=== PATIENT | male | born 1935 | race Caucasian/White ===

== ENCOUNTER → 2019-04-04 | Outpatient (CLI) | payer OTHER | LOC: HYPER 03-29 08:44 | DX: I87.312 Chronic venous hypertension (idiopathic) with ulcer of left lower extremity (principal); L97.822 Non-pressure chronic ulcer of other part of left lower leg with fat layer exposed; L97.811 Non-pressure chronic ulcer of other part of right lower leg limited to breakdown of skin; R60.0 Localized edema; Z87.891 Personal history of nicotine dependence ==

== ENCOUNTER → 2019-04-13 | Outpatient (CLI) | payer OTHER | LOC: HYPER 04-12 15:44 | DX: I87.312 Chronic venous hypertension (idiopathic) with ulcer of left lower extremity (principal); L97.822 Non-pressure chronic ulcer of other part of left lower leg with fat layer exposed; L97.811 Non-pressure chronic ulcer of other part of right lower leg limited to breakdown of skin; L03.116 Cellulitis of left lower limb; R60.0 Localized edema; Z87.891 Personal history of nicotine dependence ==

== ENCOUNTER → 2019-04-26 | Outpatient (CLI) | payer OTHER | LOC: HYPER 07:23 | DX: I87.312 Chronic venous hypertension (idiopathic) with ulcer of left lower extremity (principal); L97.822 Non-pressure chronic ulcer of other part of left lower leg with fat layer exposed; L97.811 Non-pressure chronic ulcer of other part of right lower leg limited to breakdown of skin; L03.116 Cellulitis of left lower limb; R60.0 Localized edema; Z87.891 Personal history of nicotine dependence ==

== ENCOUNTER 2019-05-02 09:45 | Inpatient (IN) | payer OTHER ==
[~2019-05-02] VITALS: Ht 180.3 cm; Wt 75.9 kg
[2019-05-02 10:30] VITALS: BP 117/75
[2019-05-02] MEDS ORDERED: FLONASE 0.05%50 MCG NASAL (11:11)
[2019-05-02] MEDS ORDERED: NORCO 10-325 T1 EACH PO (11:12)
[2019-05-02] MEDS ORDERED: VISTARIL 25 MG25 M1 PO (11:14)
[2019-05-02] MEDS ORDERED: HYDROXYZINE HCL25 M2 PO ×2 (11:15)
[2019-05-02] MEDS ORDERED: TYLENOL325 MG PO (11:17)
[2019-05-02] MEDS ORDERED: MUCINEX600 MG PO (11:18)
[2019-05-02] MEDS ORDERED: ALLEGRA ALLERG180 MG PO (11:23)
[2019-05-02] MEDS ORDERED: PRIMIDONE50 MG PO (11:27)
[2019-05-02] MEDS ORDERED: MIRALAX17 GM PO (11:28)
[2019-05-02] MEDS ORDERED: FLOMAX0.4 MG PO (11:28)
[2019-05-02 11:58] LABS: ABSOLUTE NEUTROPHILS 3.2 thou/uL (1.4-8.2); BASOPHILS 0.6 % (0.0-2.0); EOSINOPHILS 2.4 % (0.0-3.0); HEMATOCRIT 42.5 % (42.0-52.0); HEMOGLOBIN 13.8 gm/dL (14.0-18.0); LYMPHOCYTES 18.1 % (24.0-44.0); MCH 30.5 pg (26.0-34.0); MCHC 32.5 g/dL (28.0-37.0); MCV 93.9 fL (80.0-100.0); MONOCYTES 8.2 % (1.0-8.0); PLATELET COUNT 219 thou/uL (150-400); POLYS 70.7 % (36.0-66.0); RBC 4.53 mil/uL (4.50-6.00); RDW 14.5 % (10.5-14.5); WBC 4.5 thou/uL (4.0-11.0)
[2019-05-02] MEDS ORDERED: FLUTICASONE-SA1 EAC3 INH (12:06)
[2019-05-02 12:12] LABS: INR 1.1; PROTIME 11.2 Seconds (9.3-11.4)
[2019-05-02 12:17] LABS: ALBUMIN 3.3 g/dL (3.4-5.0); ANION GAP 6 mmol/L (7-16); BUN 38 mg/dL (7-18); CALCIUM 9.7 mg/dL (8.5-10.1); CHLORIDE 102 mmol/L (98-107); CHOLESTEROL 166 mg/dL (<200); CO2 32 mmol/L (21-32); CREATININE 1.7 mg/dL (0.7-1.3); GLUCOSE 151 mg/dL (74-106); HDL CHOLESTEROL 41 mg/dL (>40); LDL CHOLESTEROL 108 mg/dL (<100); MAGNESIUM 2.2 mg/dL (1.8-2.4); POTASSIUM 3.9 mmol/L (3.5-5.1); SGOT 16 U/L (15-37); SGPT 26 U/L (30-65); SODIUM 140 mmol/L (136-145); TOTAL BILIRUBIN 0.9 mg/dL (<0.1-1.0); TOTAL PROTEIN 7.1 g/dL (6.4-8.2); TRIGLYCERIDE 88 mg/dL (<150); VLDL 18 mg/dL (<40)
[2019-05-02 13:20] LABS: TSH 2.128 uIU/mL (0.358-3.740)
[2019-05-02 13:40] LABS: URINE BILIRUBIN NEGATIVE (Negative); URINE BLOOD NEGATIVE (Negative); URINE CLARITY CLEAR; URINE COLOR YELLOW; URINE GLUCOSE-RANDOM* NEGATIVE (Negative); URINE KETONES NEGATIVE (Negative); URINE LEUKOCYTES NEGATIVE (Negative); URINE NITRITE NEGATIVE (Negative); URINE PROTEIN (DIPSTICK) NEGATIVE (Negative); URINE UROBILINOGEN 0.2 E.U./dl (0.2-1.0)
[2019-05-02 15:13] VITALS: BP 144/82
[2019-05-02 19:10] VITALS: BP 150/66
--- NOTE | 2019-05-02 19:49 | NUR ---
Direct admit on the floor due to L ankle cellulitis. Dr Washburn informed re: admission, called me back and said that pt is under Dr. England- Dr England informed and said she'll see pt. Medication rec done and sent to Dr England for review, with meds brought in from home, placed on pharmacy sealed bag, enlisted all meds on the bag and sent to pharmacy for safekeeping- pt aware and claim form attached on the chart. A+Ox4. On room air. No nausea, no vomiting and no abdominal pain noted. L ankle pain 08/19, informed pt that pain meds are available if he wants, he said that he does not want it as of the moment but will let nurse know. Started IV on his L FA, NS 75cc/hr started. Pt went down via wheelchair for MRI of his L Leg, checklist sent. Pt brought back to [place], transferred to bed safely. Wound photo taken and wound care done, consult to Dr Ceja called in, left a voicemail. Pt seen by Dr England, diet ordered for the pt; informed him as well. Admission care and assessment done, forms filled up. With consult to Dr De La Cruz- called in, will possibly see pt later. Assisted in ADLs. Seen by OT today- evaluation done. Edema noted on his L Leg- kept elevated. With orders to have med records from [facility](MRI) faxed over, asked senior staff and 4E US how to do request since I have not it done before, as per 4E US, to have pt sign consent for Medical record request and fax to our Medical records, form signed by pt and faxed to Medical Records as instructed; a/w reply. Vital signs stable. No complaints of pain made the whole shift. With orders for US this PM- night staff informed. To continue monitoring.
[2019-05-03 05:49] LABS: HEMATOCRIT 40.4 % (42.0-52.0); HEMOGLOBIN 13.2 gm/dL (14.0-18.0); MCH 30.3 pg (26.0-34.0); MCHC 32.7 g/dL (28.0-37.0); MCV 92.7 fL (80.0-100.0); RBC 4.36 mil/uL (4.50-6.00); RDW 14.4 % (10.5-14.5); WBC 3.9 thou/uL (4.0-11.0)
[2019-05-03 06:11] LABS: CALCIUM 9.1 mg/dL (8.5-10.1); CREATININE 1.5 mg/dL (0.7-1.3); MAGNESIUM 1.9 mg/dL (1.8-2.4)
[2019-05-03 07:32] VITALS: BP 144/86
--- NOTE | 2019-05-03 08:45 | NUR ---
progress pt a/o x4. lungs clear, abdomen soft with active bs reported he felt constipated so miralax given. voiding qs. up with sba gait steady. right groin drsg c/d/i. no hematoma noted neuro checks to rle wnl. continue poc.
--- NOTE | 2019-05-03 09:00 | HC ---
[facility] [place] [address] CONSULTATION Name: ALFRED CEE Room #: 435-P [facility] IN M.R.#: [id number] Admission: 05/02/19 Attend Phys: Luis Fernando Washburn MD Discharge: Date of : 35 Report #: [id number] THIS REPORT FOR: //name// CC: Deng Barillas [facility] DATE OF SERVICE: 05/02/2019 INFECTIOUS DISEASE CONSULTATION REASON FOR CONSULTATION: Evaluate left ankle soft tissue infection. HISTORY OF PRESENT ILLNESS: The patient is an 83-year-old, several years ago noticed that he had an insect bite to his left ankle. This developed a wound and following that, he noticed marked edema to the left lower leg, mostly below the knee. He has been dealing with wound care and antibiotic therapy periodically. 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 He has been unable to do much due to this persistent wound. He was seen several months ago at a [facility] where he underwent venous ablation procedure, possibly some stenting, which he noticed improved the swelling, although he continues to have a large wound to the medial lower leg, ankle region. He has had no fever, chills or sweats. He received a course of amoxicillin 2 weeks ago. This did not have much effect on the wound. He has a small to moderate amount of drainage. Overall, he feels well except for this area with minimal pain. He has had no surgical intervention. He is a nonsmoker and has no history of diabetes. ALLERGIES: None known. MEDICATIONS: As noted on his MAR including Flonase, [place], hydroxyzine, Mucinex, primidone, tamsulosin, MiraLax, fluticasone and salmeterol inhaler, given a dose of vancomycin today. PAST MEDICAL HISTORY: Tremor, chronic kidney disease. FAMILY HISTORY: Noncontributory. SOCIAL HISTORY: Past smoker, no significant alcohol intake, no HIV risks. REVIEW OF SYSTEMS: Denies any cardiopulmonary, GI, , joint, neuro, heme, lymph, allergic, psychiatric issues. PHYSICAL EXAMINATION: VITAL SIGNS: Afebrile and hemodynamically stable. GENERAL: He is alert and cooperative. SKIN: With very large necrotic wound to his left medial lower leg and ankle. [address] [address] CONSULTATION Name: ALFRED CEE Room #: 435-P [facility] IN M.R.#: [id number] Admission: 05/02/19 Attend Phys: Luis Fernando Washburn MD Discharge: Date of : 35 Report #: [id number] There was a sinus tract present with tunneling. There was minimal drainage. Mild surrounding erythema. No lymphangitis identified. Other skin examination was unremarkable. He had 2+ edema in the lower leg, mostly around the ankle and foot. No palpable adenopathy. HEENT: Eyes, without scleral icterus. Mouth without mucositis. NECK: Supple, with no thyromegaly or mass. LUNGS: Clear. HEART: Regular, without murmur, gallop, or rub. ABDOMEN: Soft and nontender with no hepatosplenomegaly or mass. EXTREMITIES: Unremarkable. Pulses were palpable in the foot. NEUROLOGIC: Cranial nerves intact. Strength in his upper and lower extremities normal. Sensation intact. MOOD: Normal. BACK: Nontender. LABORATORY STUDIES: Hemoglobin 13.8, WBC 4.5, platelet count 219,000. Differential unremarkable. Sodium 140, potassium 3.9, bicarbonate 32, creatinine 1.7. Liver function test normal. Urinalysis unremarkable. MRI scan of the ankle, no evidence of osteomyelitis, extensive subcutaneous fat signal consistent with cellulitis, lymphangitis. Outside cultures on 04/26/2019 of the ankle wound revealed Enterococcus faecalis, PENICILLIN AND VANCOMYCIN sensitive as well as pansensitive, Leclercia adecarboxylata organism was sensitive to ampicillin, cefuroxime, ciprofloxacin, meropenem, gentamicin, tetracycline, and tobramycin. IMPRESSION: An 83-year-old with venous stasis disease, previous injury to his left ankle with extensive soft tissue defect. I am unclear as to the depth of this wound. I have discussed in detail with wound care service. Surgical intervention is going to be undertaken. Plan was to see how extensive the wound is and then decide if Plastic Surgery will be necessary. I am also concerned about the ability of him to heal a wound of this nature. Screening laboratory studies, nonfasting blood glucose is 151. He has chronic kidney disease with a creatinine of 1.7. RECOMMENDATIONS: We will treat the current organisms with Unasyn at this point while we await further culture data from Surgery. Would check hemoglobin A1c along with arterial vascular studies to ensure we have adequate blood flow. The patient is to be consulted by Orthopedic Surgery to begin a debridement. <ELECTRONICALLY SIGNED> By: Wolf De La Cruz MD 05/03/19 09 1807 022 Wolf De La Cruz MD /nt
--- NOTE | 2019-05-03 10:08 | NUR ---
Received awake on bed. Due medications given as prescribed. A+Ox4. On room air. With NS at 50cc/hr, infusing well at L FA. With dressing at L Leg- C/D/I. Seen by PT today, able to walk around the hallway, PT evaluation done, pt on stand by assist. Vital signs stable. With consult to Dr Montero- US informed to call in consult. No complaints of pain. Able to tolerated meals- no nausea, no vomiting or abdominal pain noted; able to swallow meds w/o difficulty.
[2019-05-03 13:33] VITALS: BP 140/78
--- NOTE | 2019-05-03 15:37 | NUR ---
PT ADMITTED RELATED TO L FOOT CELLULITIS. CM REVIEWED CHART AND SPOKE WITH CARE TEAM. CM MET WITH PT AT BEDSIDE THIS DAY. PT IS A&O X4. CM ROLE INTRODUCED. PT INDICATED HE LIVES IN A HOUSE WITH HIS SPOUSE WITH 6 STEPS TO ENTER AND 13 STEPS INSIDE. PT INDICATED NO DME OR HH HX. PT INIDCATED HE HAD BEEN INDEPENDENET WITH GAIT AND ADLS RISK INTERN. PT INDICATED THAT HE PLANS TO HAVE DR. FRANKS BE HIS PCP UPON DC. PT INIDCATED HE HAD BEEN ON SERVICE WITH [facility] PRIOR TO ADMISSION AND WOULD LIKE TO USE THEM UPON DISHCARGE. CM TO FOLLOW INDICATED WITH DC PLANNING.
--- NOTE | 2019-05-03 16:54 | HC ---
[facility] [place] [address] CONSULTATION Name: ALFRED HURLEY Room #: 435-P [facility] IN M.R.#: [id number] Admission: 05/02/19 Attend Phys: Luis Fernando Washburn MD Discharge: Date of : 35 Report #: [id number] THIS REPORT FOR: //name// CC: Deng Washburn [facility] DATE OF SERVICE: 05/02/2019 CHIEF COMPLAINT: Ulceration to the left medial ankle. HISTORY OF PRESENT ILLNESS: This is an 83-year-old male patient who was admitted to the hospital. He reportedly had some sort of vascular procedure, possibly a venous ablation type procedure may be 6 months ago and then developed swelling involving his lower leg. The area is ulcerated. It is not healed and it has been somewhat painful. It has become somewhat erythematous and infected looking and he is admitted for further evaluation and treatment. The patient denies a lot of pain associated with this, but states he is concerned it that has been nonhealing. His timeline for the development of the ulceration and swelling and the exact details are a little bit fuzzy right now and I do not have any records to review or have any sort of vascular type procedures. The patient; however, is pleasant and cooperative. PAST MEDICAL HISTORY: Positive for history of benign essential tremor, chronic kidney disease stage 3. MEDICATIONS: Flonase nasal spray, [place], hydroxyzine, Tylenol, guaifenesin, primidone, tamsulosin, polyethylene glycol. ALLERGIES: No known drug allergies. SOCIAL HISTORY: The patient denies alcohol use. Previous smoker, 2-3 packs per day, quit less than a year ago. FAMILY HISTORY: Noncontributory. REVIEW OF SYSTEMS: CONSTITUTIONAL: The patient denies fever, chills or weight loss. NEUROLOGICAL: The patient denies focal weakness, numbness or tingling. EYES: The patient denies visual changes, redness, or drainage. ENT: The patient denies earache, nasal drainage or sore throat. CARDIOVASCULAR: The patient denies chest pain, palpitations or diaphoresis. PULMONARY: The patient denies cough or shortness of breath. GASTROINTESTINAL: Abdominal pain. ORTHOPEDIC: The patient denies pain, swelling, redness and ulceration of the left lower extremity. [address] [address] CONSULTATION Name: ALFRED HURLEY Room #: 435-P [facility] IN .R.#: [id number] Admission: 05/02/19 Attend Phys: Luis Fernando Washburn MD Discharge: Date of : 35 Report #: [id number] Other systems in a 14-point review of systems are negative. PHYSICAL EXAMINATION: VITAL SIGNS: At this time include temperature 36.6, pulse 79, respiratory rate 18, blood pressure 144/82. GENERAL: This is an elderly male patient who appears to be in minimal distress. HEENT: Head normocephalic. Nose and throat are clear. NECK: Supple. LUNGS: Clear. HEART: Regular rate and rhythm. ABDOMEN: Bowel sounds present. EXTREMITIES: Lower extremities demonstrate 2+ edema bilaterally. There is significant swelling involving the left ankle. There is a large area of necrosis/ulcerations involving the medial ankle and lower leg. The area seems spongy or rubbery to palpation, although not specifically fluctuant. I have attempted to peel back some of the necrotic tissue without release of any type fluid and probing with the blunt end of a cotton-tipped applicator did not result in any sort of drainage or fluid to be expressed from beneath. LABORATORY DATA: Include white blood cell count 4.5, hemoglobin 13.8. INR is 1.1. Sodium 140, potassium 3.9, chloride 102, CO2 32, BUN 38, creatinine 1.7, glucose 151. Albumin is 3.3. MRI of the ankle demonstrates no evidence for osteomyelitis. Extensive abnormal signal in the subcutaneous fat of the lower leg and ankle. This is greatest medially but present circumferentially. Differential diagnosis includes chronic cellulitis or lymphangitis. CLINICAL IMPRESSION: 1. Soft tissue necrosis and ulceration of the left medial ankle. 2. Possible venous insufficiency with possible history of venous ablation procedure performed sometime in the last 6-12 months. 3. Chronic kidney disease stage 3. 4. Benign essential tremor. 5. Possible old hematoma involving the left medial leg, possibly related to complications of venous ablation surgery/procedure. RECOMMENDATIONS: At this point in time, I think the patient will need extensive debridement. This is likely larger area than what we could be safely or appropriately done at the bedside. We will consult orthopedics for debridement of the ankle and lower leg. Additional decision making would be forthcoming following debridement, obviously deep cultures would be appropriate. Infectious Disease is currently being consulted with which I agree. We will check arterial Dopplers to make sure that he has maximal vascular potential for healing. He may require tissue substitute or possibly a wound VAC depending on what we find [facility] [address] [place] [address] CONSULTATION Name: ALFRED HURLEY Room #: 435-P [facility] IN M.R.#: [id number] Admission: 05/02/19 Attend Phys: Luis Fernando Washburn MD Discharge: Date of : 35 Report #: [id number] once debridement was undertaken. I appreciate being asked to see Mr. Hurley in consultation. <ELECTRONICALLY SIGNED> By: Robert Kaiser MD 05/03/19 1654 [id number] Robert Kaiser MD /nt
[2019-05-03 19:30] VITALS: BP 165/87
[2019-05-03 20:30] VITALS: BP 134/70
[2019-05-03 21:30] VITALS: BP 119/71
[2019-05-03 23:31] VITALS: BP 123/69
--- NOTE | 2019-05-04 03:48 | NUR ---
Pt returned from surgery approx 1919 accompanied by volunteer/staff. A/OX4,VSS. C/o pain at 12/17, medicated with [place] with relief reported. Pt has a wound vac on LLE with continuous sunctioning at 125mmHG.Area warm to touch and slightly red. WBAT to LLE. Encouraged to elevate the extremity while lying down. IVF infusing w/o problems. Pt c/o constipation, prune juice given at HS no results yet. Resting quietly without distress noted,will continue to monitor pt.
[2019-05-04 06:25] LABS: HEMATOCRIT 36.4 % (42.0-52.0); MCH 30.4 pg (26.0-34.0); MCHC 32.8 g/dL (28.0-37.0); MCV 92.6 fL (80.0-100.0); RBC 3.94 mil/uL (4.50-6.00); RDW 14.2 % (10.5-14.5)
--- NOTE | 2019-05-04 06:33 | O ---
[facility] [place] [address] OPERATIVE REPORT Name: ALFRED CEE Room #: 435-P ADM IN M.R.#: [id number] Admission: 05/02/19 Attend Phys: Luis Fernando Washburn MD Discharge: Date of : 35 Report #: [id number] THIS REPORT FOR: //name// CC: Deng Washburn [facility] DATE OF SERVICE: 05/03/2019 SERVICE: Orthopedics. FACILITY: [facility]. SURGEON: Samuel Pride MD FELTING MACHINE OPERATOR: Rosanna Barron NP. PREOPERATIVE DIAGNOSIS: Left ankle wound. POSTOPERATIVE DIAGNOSIS: Left ankle wound. PROCEDURES: 1. Incision and debridement down to muscle layer of left ankle wound with final wound size of 16 cm x 10 cm x 2 cm in depth. 2. Application of negative pressure wound VAC therapy or surface area 16 x 10 x 2 cm. COMPLICATIONS: None. DRAINS: Wound VAC. SPECIMEN: Tissue sent for culture. FINDINGS: 1. No purulence. 2. Excision of tissue down to apparently viable bleeding tissue. 3. Successful wound VAC application. HISTORY: The patient is an 83-year-old gentleman with a longstanding history of left medial ankle wound. He presented when he was having a foul smelling wound and an eschar over the top. He had an MRI, which showed no signs of osteomyelitis. He had recommendation by wound care for surgical debridement and Orthopedics was consulted. Risks, benefits, alternatives, and indication for surgery was discussed with him in detail. Risks include but not limited to pain, bleeding, infection, persistence of the wound, need for further surgery, failure of surgical treatment of this wound as well as complications related to [facility] [address] [place] [address] OPERATIVE REPORT Name: ALFRED CEE Room #: 435-P ADM IN .R.#: [id number] Admission: 05/02/19 Attend Phys: Luis Fernando Washburn MD Discharge: Date of : 35 Report #: [id number] anesthesia such as stroke, heart attack, pulmonary complications, thromboembolic disease and . Despite these risks, he wished to proceed. PROCEDURE IN DETAIL: After the left lower extremity was correctly identified in preoperative holding area as the operative extremity, the patient was taken to the operating room where general anesthesia was induced without complication. He was padded appropriately. Prophylactic antibiotics were already being initiated as a treatment dose during the hospitalization. No tourniquet was utilized. Left leg was prepped and draped in standard sterile fashion. Time-out procedure was performed. The eschar was incised around the perimeter and then the edge of the nonviable tissue was excised sharply. The curvilinear contouring around the perimeter of the wound was excised as well through sharper edges. We resected tissue until bleeding was achieved around the perimeter and then continued to excised tissue working superficial to deep. The ultrasonic auxiliary equipment tender debrider was used as well to resect the necrotic tissue within the wound bed. There was no bone or tendon exposed. The muscle could be visualized and the debridement approximately came down to the muscle itself. The saphenous vein was enlarged and insert and serpiginous and portions of it were thrombosed, but portion of it were viable and it was tied off with a silk tie. After the debridement was completed with the ultrasonic device , used a rongeur to resect residual tissue as well. Again, bleeding was seen, wound was once again irrigated and then the wound VAC was placed after final measurements of the wound were completed. The initial size of the wound was 14 cm x 8 cm and was of no depth. At the completion of the debridement, the wound measured 16 cm x 10 cm x 2 cm in depth. A successful negative pressure was achieved with the wound VAC after application. We utilized a silver impregnated sponge. After the wound VAC was completed, the patient was awakened from anesthesia and taken to recovery room in stable condition. No complications and all counts were recorded. <ELECTRONICALLY SIGNED> By: Samuel Pride MD 05/04/19 0633 [id number] 41 Samuel Pride MD /nt
[2019-05-04 06:42] LABS: CALCIUM 8.7 mg/dL (8.5-10.1); CREATININE 1.4 mg/dL (0.7-1.3); MAGNESIUM 1.9 mg/dL (1.8-2.4); PHOSPHORUS 3.8 mg/dL (2.5-4.9); POTASSIUM 4.5 mmol/L (3.5-5.1)
[2019-05-04 09:00] VITALS: BP 142/78
--- NOTE | 2019-05-04 11:28 | NUR ---
Received awake on bed. Due medications given as prescribed, able to swallow meds w/o difficulty. A+O. On room air. With NS at 50cc/hr, infusing well at L FA. Complained of pain, due PRN pain medication given as prescribed. Pt S/P I&D on his left leg- wound vac in place and working, on 125mmhg, dressing C/D/I. A/W PT/OT. Able to use urinal to pass urine. Pt seen by PT this am, pt mentioned that he is non-weight bearing, verified on his notes, nothing mentioning that pt is non wt bearing, PT called Dr Pride to verify re: wt bearing status prior to therapy session, as per Dr Pride, pt can be on WBAT as long as he has boots on- to order 1 size larger- US informed to order; will see pt again this after and will try ambulating once boot is available. Vital signs stable.
--- NOTE | 2019-05-04 12:52 | NUR ---
PHYSICIAN INDICATED THAT HE WOULD LIKE REFERRAL SENT TO [facility] FOR POSSIBLE ADMISSION ONCE MEDICALL STABLE. CM TO FOLLOW INDICATED WITH DC PLANNING.
--- NOTE | 2019-05-04 13:05 | NUR ---
DISCHARGE PLANNING. ANTICIPATED DISCHARGE PLANNED FOR ONE TO TWO DAYS. POST ACUTE RECOMMENDED. PATIENT REFERRAL FAXED TO [facility] PER REQUEST. CALL PLACED TO SUAD SHARMA TO NOTIFY. FOLLOWING TO ASSIST.
[2019-05-04 16:04] VITALS: BP 111/51
[2019-05-04 19:20] VITALS: BP 132/65
--- NOTE | 2019-05-05 04:34 | NUR ---
Assumed pt care at 1900. A/OX4,VSS. Post I&D day 2, pt is WBAT to LLE. Boot delivered 05/04 was too tight will pass on to day shift;only supposed to walk if boot is on. Pivot/transfer to BSC. Extremity warm,swollen and slightly pink elevated on a pillow. C/o pain to LLE medicated per EMAR with relief reported. Wound vac in place and functional sunctioning at 125mmHG.Resting quietly at this time will continue to monitor pt. Fall precautions in place.
[2019-05-05 05:46] LABS: HEMATOCRIT 37.3 % (42.0-52.0); HEMOGLOBIN 12.2 gm/dL (14.0-18.0); MCH 30.6 pg (26.0-34.0); MCHC 32.8 g/dL (28.0-37.0); MCV 93.1 fL (80.0-100.0); RDW 14.2 % (10.5-14.5); WBC 3.7 thou/uL (4.0-11.0)
[2019-05-05 06:14] LABS: CALCIUM 8.8 mg/dL (8.5-10.1); CREATININE 1.4 mg/dL (0.7-1.3); POTASSIUM 3.9 mmol/L (3.5-5.1)
[2019-05-05 09:20] VITALS: BP 130/68
[2019-05-05 16:50] VITALS: BP 135/82
[2019-05-05 19:33] VITALS: BP 136/71
--- NOTE | 2019-05-05 19:43 | NUR ---
Assumed pt care this am, weight bearing as tolerated on his left leg. Wound vac in place and drained 50 cc. PT tried to work with the pt but was only able to transfer from bed to chair, boot could not be used due to tenderness and pain when boot was placed. Both legs were elevated for most of the day. Pain managed with medication. Fall precautions, in lpace, POC followed no signs or verbalizations of distress have been noted, vs have been stable.
--- NOTE | 2019-05-06 02:27 | NUR ---
ASSUMED CARE CYNDI 190. AXOX3. L ANKLE WOUND VAC INTACT. PERSISTENT PAIN TO L ANKLE. ELEVATED. NO S/S ACUTE DISTRESS NOTED OR REPORTED AT THIS TIME. WILL CONT TO MONITOR FOR ANY CHANGES IN CONDITION.
[2019-05-06 07:58] VITALS: BP 149/70; BP 89/54
[2019-05-06 10:36] LABS: HEMATOCRIT 41.5 % (42.0-52.0); HEMOGLOBIN 13.7 gm/dL (14.0-18.0); MCH 30.5 pg (26.0-34.0); MCV 92.5 fL (80.0-100.0); RBC 4.48 mil/uL (4.50-6.00); RDW 14.1 % (10.5-14.5); WBC 3.8 thou/uL (4.0-11.0)
[2019-05-06 10:48] LABS: CALCIUM 9.3 mg/dL (8.5-10.1); CREATININE 1.5 mg/dL (0.7-1.3); POTASSIUM 3.8 mmol/L (3.5-5.1)
--- NOTE | 2019-05-06 12:21 | NUR ---
WOUND CARE F/U; ROUNDING WITH DR PATTY FLORES. THE WOUND BED IS DRAMATICALLY BETTER. THERE IS REMAINING NON VIABLE TISSUE REMAINING IN THE WOUND BED WITH A BROWNISH-YELLOW COLOR. THE PATIENT REC'D PAIN MEDS IV FOR PROCEEDURAL PAIN WHICH WAS TOLERATED WELL. RECOMMENDATIONS; CONTINUE VAC. RN PRESENT
[2019-05-06 16:09] VITALS: BP 143/78
--- NOTE | 2019-05-06 16:46 | NUR ---
PT ACCEPTED AT [facility] SO THAT WOUND CARE TEAM CAN FOLLOW. PT TO DC THERE TOMORROW. CALL LEVAR IN ADMISSIONS AT TO ARRANGE TRANSPORT ONCE ORDERS ARE ENTERED. CALL REPORT TO FAX ORDERES [phone].
--- NOTE | 2019-05-06 20:25 | NUR ---
assumed pt care this am, wound vac in place drainig a scant amount frmo last nights amount. Wound care nurse changed dressing and wound vac, pictures taken by the wound nurse. Pain was managed with medication and a one time dose for dressing change do the wound. Legs were elevated and pt repostioned. VS have been stable through out the shift. Spoke to the PA of Dr. Altman advised them of the issue regarding the boot that was presently ordered from the pt (brace walking boot) informed then that the currently affected ankle is very sore and tender given that there is a wound vac, PT is only able to pivot and do other activities while sitting. Order from [facility] is to order a knee scooter and a post op shoe large for the left foot, but pt is to keep the initial boot ordered to be used when soreness has gone down. Informed night nurse to be ordered tomorrow am. POC followed, pt had a bowel movement at shift change. No signs or verbalizations of distress have been noted.
[2019-05-06 21:10] VITALS: BP 136/82
--- NOTE | 2019-05-07 03:10 | NUR ---
ASSUMED CARE AROUND 191. AXOX3. LLE ELVATED. WOUND VAC INTACT. NO S/S ACUTE DISTRESS NOTED OR REPORTED AT THIS TIME. WILL CONT TO MONITOR FOR ANY CHANGES IN CONDITION.
[2019-05-07 08:00] VITALS: BP 147/75
[2019-05-07 13:40] VITALS: BP 123/52
[2019-05-07 14:17] VITALS: BP 148/73
--- NOTE | 2019-05-07 16:58 | NUR ---
Assumed patient care at 0715. Patient had the following medications for pain: Hydrocodone 5/325mg at 0825 and Hydrocodone 10/325mg at 1350; both were effective in reducing the patient's pain. Dressing and wound vac are intact to left ankle/foot. IV is patent, in LFA; normal [place] is running at 50cc/hr. Spoke with Dr Myrick with [facility] regarding patient's discharge to [facility]. Dr Myrick feels that it would be safest to have patient work with physical therapy, when knee scooter and surgical boot arrive. Vital signs are stable, LSCTA, ABD is soft et non-tender, BS x's 4. Patient has a good appetite, has been eating well and drinking plenty of water. Will continue to monitor.
[2019-05-07 20:17] VITALS: BP 151/80
--- NOTE | 2019-05-08 04:31 | NUR ---
ASSUMED CARE OF PT@ 1915. PT A&O BUT FORGETFUL. PT USES URINAL AND CAN BE INCONT. PAIN WAS MANAGED WITH CURRENT REGIMEN. WOUND VAC IN PLACE AND PATENT. SCANT OUTPUT IN WOUND VAC. V/S STABLE. CALL BLANKENSHIP WITHIN REACH. NO S/S OF DISTRESS. WILL CONT TO MONITOR
[2019-05-08 07:35] VITALS: BP 104/69
[2019-05-08 11:11] VITALS: BP 104/69
--- NOTE | 2019-05-08 13:40 | NUR ---
Assumed pt care this am, wound vac patent though has very minimal out put even from last night. Pain is managed with medication and only heightened with movement. Self bath on the bed done in the am, transferred from the bed to the recliner. Uses the urinal and would call appropriately. Diet and medications are well tolerated.
[2019-05-08 15:36] VITALS: BP 128/72
[2019-05-08 19:10] VITALS: BP 122/70
--- NOTE | 2019-05-09 03:59 | NUR ---
ASSUMED CARE FROM DAY SHIFT PT REQUESTING PAIN MEDICATION EVERY 4 HOURS , PT THEN FALL ASLEEP, RESTED WELL THROUGHOUT HOURLY ROUNDS, WILL CONITNUE WITH CURRENT PLAN OF CARE.
[2019-05-09 07:25] VITALS: BP 141/67
[2019-05-09] MEDS ORDERED: AMOXICILLIN 50500 MG PO (12:10)
[2019-05-09] MEDS ORDERED: CIPRO250 M1 PO (12:10)
--- NOTE | 2019-05-09 13:54 | NUR ---
dp sent referral to [facility], they said they didn't get referral that was sent Thursday. Princess confirmed they received referral sent today and will look over. I told her we need authorization if they accept and to please let us know. DHAVAL is also watching for therapy updates from today to send RBR and LCCG. Patient is ready today
--- NOTE | 2019-05-09 15:29 | NUR ---
CARE TEAM INDICATED THAT PT IS MEDICALLY STABLE TO DISCHARGE TO [facility]. PT'S WOUND VAC WAS DISCHARGED AND THEY WANT PT TO HAVE DAKINS ON AT THE FACILITY. CHART COPY MADE. ORDERS HAVE BEEN FAXED. REPORT TO BE CALLED TO . PT'S SPOUSE AWARE. PT TO BE TRANSPORTED VIA VAN AT 1600. NO OTHER CM INTERVENTION INDICATED. CASE CLOSED.
--- NOTE | 2019-05-09 15:29 | NUR ---
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 Orders faxed, then updated orders faxed to Grecia at [facility]. Patient will need a wound vac which the facility ordered. Dp called patient's to let her know dc time.
--- NOTE | 2019-05-09 16:39 | NUR ---
ASSUMED CARE 0700. A/O X4, FROM HOME, DISCHARGED TO [facility] AT 4PM. WOUND VAC REMOVED BY WOUND NURSE. WET TO DRY DRESSING IN PLACE. PAIN MANAGAD WITH MEDICATIONS, BOOT WENT WITH PATIENT TO SNF-AND ALL PATIENTS BELONGINGS AND MEDICATION SCRIPTS. REPORT GIVEN TO NURSE WAGGONER AT FACILITY. TRANSPORTED VIA AND CERTIFIED TRANSPORTATION SERVICE.
== END 2019-05-09 17:23 | DRG 579 ==
LOC: 4S 09:45 → 4W 05-09 11:12
PROVIDERS: Internal Medicine; ADMIT Family Medicine
PROC: 0KBT0ZZ Excision of Left Lower Leg Muscle, Open Approach (ICD-10-PCS; principal; 2019-05-03)
PROC: 0KDT0ZZ Extraction of Left Lower Leg Muscle, Open Approach (ICD-10-PCS; principal; 2019-05-03)
DX: L03.116 Cellulitis of left lower limb (principal); G93.41 Metabolic encephalopathy; L97.923 Non-pressure chronic ulcer of unspecified part of left lower leg with necrosis of muscle; N18.3 Chronic kidney disease, stage 3 (moderate); G25.0 Essential tremor; I87.8 Other specified disorders of veins; N40.0 Benign prostatic hyperplasia without lower urinary tract symptoms; B96.89 Other specified bacterial agents as the cause of diseases classified elsewhere; I73.9 Peripheral vascular disease, unspecified; B96.5 Pseudomonas (aeruginosa) (mallei) (pseudomallei) as the cause of diseases classified elsewhere; B96.6 Bacteroides fragilis [B. fragilis] as the cause of diseases classified elsewhere; Z79.899 Other long term (current) drug therapy; Z87.891 Personal history of nicotine dependence; Z82.49 Family history of ischemic heart disease and other diseases of the circulatory system; Z82.3 Family history of stroke
CPT/HCPCS: 10102; 50010; 50101; 50386; 50643; 50970; 56526; 57091; 57119; 62110; 62900; 70005